=== PATIENT | female | born 1965 | race Caucasian/White ===

== ENCOUNTER 2021-03-18 07:14 | Emergency (ER) | payer OTHER, SELFPAY ==
[2021-03-18 07:27] VITALS: BP 134/81; PULSE 102; O2SAT 97
[2021-03-18 07:30] VITALS: PULSE 95; O2SAT 98
[2021-03-18 07:31] VITALS: BP 134/81; PULSE 97; RESP 16; TEMP 36.6; O2SAT 97; BMI 29.0
--- NOTE | 2021-03-18 07:31 | ED.ABDPAIN ---
HPI - Abdominal Pain General Chief Complaint: Abdominal Pain Stated Complaint: diverticulosis Time Seen by Provider: 03/18/21 07:15 History of Present Illness HPI narrative: 55-year-old female nonsmoker with history of kidney stones and diverticulitis presents with her with a chief complaint of a recurrence and worsening of bilateral flank pain over the past few days. She states her symptoms are made significantly worse any time she eats. She denies any positional component or colicky type description. She has had no constipation or diarrhea. She denies any urinary complaints such as dysuria, frequency or urgency. About 3 weeks ago she had similar symptoms and was seen and evaluated at an outside facility and had a workup which demonstrated diverticulitis. She was on a course of Cipro and Flagyl and actually felt better but is starting to worsen again. She has had no fever or chills. She has had nausea but denies any vomiting. Related Data Previous Rx's Medication Instructions Recorded cefpodoxime 200 mg tablet 200 mg PO BID 10 Days #20 tab 03/18/21 hydrocodone 5 mg-acetaminophen 325 1 tab PO Q4-6H PRN #10 tab 03/18/21 mg tablet ondansetron 4 mg disintegrating 4 mg PO TID-QID PRN #10 tab 03/18/21 tablet Review of Systems Review of Systems Narrative: GENERAL: See HPI HEENT: Denies sinus pain, ear pain, sore throat, difficulty swallowing, dizziness. RESPIRATORY: Denies dyspnea, cough, wheezing, hemoptysis, sputum. CARDIOVASCULAR: Denies chest pain, palpitations, orthopnea, edema, GASTROINTESTINAL: See HPI : Denies dysuria, frequency, incontinence, hematuria, urinary retention. MUSCULOSKELETAL: denies weakness, joint pain, or bony pain SKIN: Denies rash, skin lesions, or other NEUROLOGIC: Denies weakness, headache, numbness, change in speech, confusion, seizures, incoordination. PSYCHIATRIC: No concerning psychosocial issues. 12 point review of systems is negative except for those stated above Patient History Medical History (Updated 03/18/21 @ 09:02 by Jeremy Salazar DO) Diverticulitis Kidney stones Exam Narrative Exam Narrative: GENERAL: [55] year old patient appears stated age. Well-developed patient, in mild distress. HEAD: Atraumatic. Normocephalic. EYES: Pupils equal round and reactive. Extraocular motions intact. No scleral icterus. No injection or drainage. ENT: Nose without bleeding, purulent drainage. Throat without erythema, tonsillar hypertrophy or exudate. Airway patent. NECK: Trachea midline. Non tender CARDIOVASCULAR: Regular rate and rhythm without murmurs, gallops, or rubs. RESPIRATORY: Clear to auscultation. Breath sounds equal bilaterally. No wheezes, rales, or rhonchi. GASTROINTESTINAL: Abdomen soft, non-tender, nondistended. EXTREMITIES: No edema or joint tenderness. BACK: Nontender without deformity or crepitance. No flank tenderness. NEURO: AOx3. SKIN: No rash or erythema of visible areas Initial Vital Signs Initial Vital Signs: Vital Signs Pulse Rate 102 H 03/18/21 07:27 Blood Pressure 134/81 03/18/21 07:27 Pulse Oximetry 97 03/18/21 07:27 Course Orders Ordered: ED Orders 03/18/21 07:19 Blood Culture Stat 03/18/21 07:30 CT abdomen pelvis w con Stat Complete Blood Count AUTO DIFF Stat Comprehensive Metabolic Panel Stat Lactate (Lactic Acid) Stat 03/18/21 08:41 Urine Culture Stat Urine Microscopic Stat Discontinued Medications Sodium Chloride (Normal Saline 0.9%) 1,000 mls @ 1,000 mls/hr IV BOLUS ONE Stop: 03/18/21 08:14 Last Infusion: 03/18/21 09:11 Dose: 0 mls/hr Documented by: Admin: 03/18/21 07:35 Dose: 1,000 mls/hr Documented by: TAINA Ketorolac Tromethamine (Ketorolac 30 Mg/Ml Vial) 15 mg IV NOW ONE Stop: 03/18/21 07:31 Last Admin: 03/18/21 07:34 Dose: 15 mg Documented by: TAINA Vital Signs Vital signs: Vital Signs - 8 hr 03/18/21 07:27 03/18/21 07:30 03/18/21 07:31 Temperature 98 F Pulse Rate 102 H 95 H 97 H Respiratory Rate 16 Blood Pressure 134/81 134/81 Pulse Oximetry 97 98 97 03/18/21 08:57 03/18/21 09:00 Temperature Pulse Rate 94 H 87 Respiratory Rate Blood Pressure 122/69 Pulse Oximetry 98 100 MDM - Abdominal Pain Lab Data Result diagrams: 03/18/21 07:30 03/18/21 07:30 Labs: Lab Results 03/18/21 03/18/21 03/18/21 Range/Units 07:30 07:30 07:30 WBC 9.8 (4.5-11.0) X10^3/uL RBC 4.72 (4.0-5.2) X10^6/uL Hgb 13.1 (12.0-16.0) g/dL Hct 39.7 (36-46) % MCV 84.2 (80-100) fL MCH 27.7 (26-34) PG MCHC 32.9 (30-36) % RDW 14.1 (11.6-14.8) % Plt Count 359 (150-400) X10^3/uL Neut % (Auto) 61.3 (50-75) % Lymph % (Auto) 27.8 (25-40) % [place] % (Auto) 6.5 (3-14) % Eos % (Auto) 3.8 (2-4) % Baso % (Auto) 0.6 (0-2) % Neut # (Auto) 6000 (3218-6329) /uL Lymph # (Auto) 2700 (4519-0751) /uL [place] # (Auto) 600 (0-900) /uL Eos # (Auto) 400 (0-450) /uL Baso # (Auto) 100 (0-100) /uL Sodium 136 L (137-145) mmol/L Potassium 4.0 (3.4-5.1) mmol/L Chloride 96 L (98-107) mmol/L Carbon Dioxide 34 H (22-32) mmol/L BUN 17 (7-17) mg/dL Creatinine 0.64 (0.52-1.04) mg/dL Estimated GFR > 60.0 (>60) mL/min BUN/Creatinine Ratio 26.6 H (6-22) Glucose 138 H (70-100) mg/dL Lactate 1.0 (0.7-2.1) mmol/L Calcium 9.3 (8.4-10.2) mg/dL Total Bilirubin 0.5 (0.2-1.3) mg/dL AST 29 (14-36) IU/L ALT 37 H (<35) IU/L Alkaline Phosphatase 80 (38-126) U/L Total Protein 7.5 (6.3-8.2) g/dL Albumin 4.3 (3.5-5.0) g/dL Globulin 3.2 (1.7-4.1) g/dL Albumin/Globulin Ratio 1.3 (1.0-2.8) Urine RBC (0-5/HPF) Urine WBC (0-5/HPF) Ur Squamous Epith Cells (0-5/HPF) Ur Renal Epithelial Cell (0-1/HPF) Urine Bacteria (None) Ur Culture Indicated? 03/18/21 Range/Units 08:41 WBC (4.5-11.0) X10^3/uL RBC (4.0-5.2) X10^6/uL Hgb (12.0-16.0) g/dL Hct (36-46) % MCV (80-100) fL MCH (26-34) PG MCHC (30-36) % RDW (11.6-14.8) % Plt Count (150-400) X10^3/uL Neut % (Auto) (50-75) % Lymph % (Auto) (25-40) % [place] % (Auto) (3-14) % Eos % (Auto) (2-4) % Baso % (Auto) (0-2) % Neut # (Auto) (5216-7734) /uL Lymph # (Auto) (6285-0612) /uL [place] # (Auto) (0-900) /uL Eos # (Auto) (0-450) /uL Baso # (Auto) (0-100) /uL Sodium (137-145) mmol/L Potassium (3.4-5.1) mmol/L Chloride (98-107) mmol/L Carbon Dioxide (22-32) mmol/L BUN (7-17) mg/dL Creatinine (0.52-1.04) mg/dL Estimated GFR (>60) mL/min BUN/Creatinine Ratio (6-22) Glucose (70-100) mg/dL Lactate (0.7-2.1) mmol/L Calcium (8.4-10.2) mg/dL Total Bilirubin (0.2-1.3) mg/dL AST (14-36) IU/L ALT (<35) IU/L Alkaline Phosphatase (38-126) U/L Total Protein (6.3-8.2) g/dL Albumin (3.5-5.0) g/dL Globulin (1.7-4.1) g/dL Albumin/Globulin Ratio (1.0-2.8) Urine RBC None seen (0-5/HPF) Urine WBC 0-1/hpf (0-5/HPF) Ur Squamous Epith Cells 1-5 /hpf (0-5/HPF) Ur Renal Epithelial Cell 0-1/hpf (0-1/HPF) Urine Bacteria Occasional (0-1) (None) Ur Culture Indicated? Specimen cultured Point of care testing: Urine Dip Bedside Urine Glucose Negative Bedside Urine Bilirubin - Negative Bedside Urine Ketone - Negative Urine Specific [place] 1.005 Bedside Urine Occult Blood - Negative Bedside Urine pH 6 Bedside Urine Protein - Negative Bedside Urine Urobilinogen - Negative Bedside Urine Nitrite - Negative Bedside Urine Leukocytes + [address] scan - abdomen/pelvis: Radiologist's Impression: [address] [id number] Scan ReportSigned Patient: Elvira Whitman R#: [id number]: 1965Acct:[id number]/Sex: 55 / FDate of Service: 03/18/21Loc: EDAccession Number: [id number] Procedure: CT abdomen pelvis w con Ordering Provider: Jeremy Salazar D.O. PROCEDURE: CT ABDOMEN PELVIS W CON INDICATIONS: abdominal pain, recent stone and diverticulitis, worse TECHNIQUE: After the administration of intravenous contrast, axial sections acquired from the lung bases to the pubic symphysis. Coronal and sagittal reformats were performed. For radiation dose reduction, the following was used: automated exposure control, adjustment of mA and/or kV according to patient size. COMPARISON: None. FINDINGS: Image quality: Excellent. Lung bases: Unremarkable. Heart: No significant findings. ABDOMEN: Liver: There is hepatic steatosis, no discrete hepatic lesion. Gallbladder: Tiny stones are seen in dependent portion of gallbladder lumen. No gallbladder wall thickening or pericholecystic fluid. Biliary ducts: Unremarkable. Pancreas: Unremarkable. Spleen: Unremarkable. Adrenal Glands: Unremarkable. Kidneys and Ureters: Bilateral nonobstructing renal calculi are seen measures up to 2 mm in size in midpole of left kidney. No hydronephrosis or perinephric fat stranding. No hydroureter. Stomach and Bowel: There is no bowel obstruction. No gastric or small bowel wall thickening. Descending colon and sigmoid colon diverticulosis is seen, no wall thickening or pericolonic fat stranding is seen. No abscess collection. Appendix is not definitively identified. Mild fecal stasis in the colon is seen. Peritoneum: No abnormal intraperitoneal fluid. No free air. Ventral Wall: No hernias. Abdominal Nodes: No retroperitoneal or mesenteric adenopathy by size criteria. Vessels: Aorta and inferior vena cava are normal in size. PELVIS: Pelvic Organs: Unremarkable. Bladder: Unremarkable. Pelvic Nodes: No enlarged lymph nodes. Miscellaneous: No hernias are seen. Bones: No vertebral body compression fracture. Degenerative endplate changes are seen at L4-5 and L5-S1 levels. IMPRESSION: 1. Colonic diverticulosis without CT evidence of acute diverticulitis. No bowel obstruction. No abscess collection. No free fluid or free air. 2. Tiny bilateral nonobstructing renal calculi. No hydronephrosis or hydroureter. Normal appearing urinary bladder. 3. Hepatic steatosis, no discrete hepatic lesion. 4. Cholelithiasis without CT evidence of acute cholecystitis. Dictated by: Rakan Odom M.D. on 03/18/2021 at 8:26 Approved by: Rakan Odom M.D. on 03/18/2021 at 8:29 MDM Narrative Medical decision making narrative: Physical exam and history are very reassuring. Diverticulitis and kidney stone considered but thought unlikely given exam, CT and urine findings. She is tolerating her pain quite well, vital signs are stable and labs are reassuring. Discharge Plan Departure Patient Disposition: Home Clinical Impression: UTI (urinary tract infection) Qualifiers: Urinary tract infection type: acute cystitis Hematuria presence: without hematuria Qualified Code(s): N30.00 - Acute cystitis without hematuria Instructions: DI for Urinary Tract Infection (UTI) Activity Restrictions/Additional Instructions: *You have been diagnosed with [urinary tract infection with possible mild kidney involvement. Your CT scan shows no diverticulitis or kidney stones that are likely to be contributing to trouble] *What to do: *Please continue to take your regular medications as directed. [x ] New medication prescriptions sent to your pharmacy: [[facility] ] [ ] New medication written as a paper prescription [ ] No new medications given *Please follow up with your primary care provider in 2-3 days, call for an appointment. Let them know you were seen in the Emergency Department and that we ask that you be seen in follow up. We will electronically transmit a record of today's note if your PCP is in our system *If you do not have a primary care provider please contact the [facility] Resource line at [phone]. They will ask some questions about your medical history and help get you set up with a doctor in the community. *Return to Emergency Department if you should have any new, worsening or concerning symptoms, such as [fever greater than 101 F, shaking chills, worsening pain, persistent vomiting or other bothersome symptoms] Prescriptions: New cefpodoxime 200 mg tablet 200 mg PO BID 10 Days Qty: 20 RF: 0 hydrocodone-acetaminophen 5-325 mg tablet 1 tab PO Q4-6H PRN (Reason: pain) Qty: 10 RF: 0 ondansetron 4 mg tablet,disintegrating 4 mg PO TID-QID PRN (Reason: nausea and vomiting) Qty: 10 RF: 0 Referrals: Miscellaneous,Doctor, MD [Primary Care Provider] -
[2021-03-18] MEDS: KETOROLAC 30 MG/ML VIAL 15 MG IV (07:34)
[2021-03-18] MEDS: SODIUM CHLORIDE 0.9% 1,000 ML 1000 ML IV (07:35)
[2021-03-18 07:40] LABS: Add Manual Diff / Slide Review NO; Basophils Absolute Auto 100 /uL (0-100); Basophils Percent Auto 0.6 % (0-2); Eosinophils Absolute Auto 400 /uL (0-450); Eosinophils Percent Auto 3.8 % (2-4); Hematocrit 39.7 % (36-46); Hemoglobin 13.1 g/dL (12.0-16.0); Lymphocytes Absolute Auto 2700 /uL (1100-4500); Lymphocytes Percent Auto 27.8 % (25-40); Mean Corpuscular HGB Conc 32.9 % (30-36); Mean Corpuscular Hemoglobin 27.7 PG (26-34); Mean Corpuscular Volume 84.2 fL (80-100); Monocytes Absolute Auto 600 /uL (0-900); Monocytes Percent Auto 6.5 % (3-14); Neutrophils Absolute Auto 6000 /uL (1500-7000); Neutrophils Percent Auto 61.3 % (50-75); Platelet Count 359 X10^3/uL (150-400); Red Blood Cell Count 4.72 X10^6/uL (4.0-5.2); Red Cell Distribution Width 14.1 % (11.6-14.8); White Blood Cell Count 9.8 X10^3/uL (4.5-11.0)
[2021-03-18 07:52] LABS: Alanine Aminotransferase 37 IU/L (<35); Albumin 4.3 g/dL (3.5-5.0); Albumin Globulin Ratio 1.3 (1.0-2.8); Alkaline Phosphatase 80 U/L (38-126); Aspartate Aminotransferase 29 IU/L (14-36); BUN Creatinine Ratio 26.6 (6-22); Bilirubin Total 0.5 mg/dL (0.2-1.3); Blood Urea Nitrogen 17 mg/dL (7-17); Calcium 9.3 mg/dL (8.4-10.2); Carbon Dioxide 34 mmol/L (22-32); Chloride 96 mmol/L (98-107); Estimated Glomerular Filt Rate > 60.0 mL/min (>60); Globulin 3.2 g/dL (1.7-4.1); Glucose 138 mg/dL (70-100); HEMOLYSIS < 15 (0-50); Sodium 136 mmol/L (137-145); Total Protein 7.5 g/dL (6.3-8.2)
[2021-03-18 08:52] LABS: RBC Urine None Seen (0-5/HPF)
[2021-03-18 08:57] VITALS: BP 122/69; PULSE 94; O2SAT 98
[2021-03-18 09:00] VITALS: PULSE 87; O2SAT 100
[2021-03-18 09:07] LABS: Bacteria Urine Occasional (0-1); Culture Indicated Urine Specimen Cultured; Renal Epithelial Cells Urine 0-1/HPF (0-1/HPF); Squamous Epithelial Cell Urine 1-5 /HPF (0-5/HPF); WBC Urine 0-1/HPF (0-5/HPF)
== END 2021-03-18 09:17 | disposition home or self-care (01) ==
PROVIDERS: Emergency Provider Emergency Medicine
DX: N30.00 Acute cystitis without hematuria (principal); R11.0 Nausea; R10.9 Unspecified abdominal pain
CPT/HCPCS: 36415; 74177; 80053; 81003; 81015; 83605; 85025; 87040; 87086; 96361; 96374; 99284; J1885; Q9967